=== PATIENT | female | born 1965 | race Caucasian/White ===

== ENCOUNTER 2022-04-21 08:25 | Emergency (ER) | payer BC, SELFPAY ==
[2022-04-21 08:30] VITALS: BP 151/101; PULSE 119; RESP 18; TEMP 36.9; O2SAT 96
--- NOTE | 2022-04-21 08:50 | DI.CT_ITS ---
Exam(s) CT ABDOMEN PELVIS W EXAM: CT ABDOMEN PELVIS W CLINICAL HISTORY: LUQ and flank pain, fever TECHNIQUE: Imaging Protocol: Axial computed tomography images with coronal and sagittal reformatted images were created and reviewed CONTRAST MATERIAL: Intravenous: Omnipaque 350 Contrast volume:100 mL Oral: No COMPARISON: No exams were available for comparison FINDINGS: ABDOMEN: Lung Bases: There is a small hiatal hernia. Liver: There is diffuse decreased attenuation of the liver suggesting fatty infiltration. No suspici ous masses. Portal, Superior Mesenteric, and Splenic Veins: Unremarkable. Gallbladder and Biliary Tract: No radiodense calculus or dilation. Pancreas: Normal density, no abnormal calcifications or inflammatory process. Spleen: Normal. Adrenals: No masses seen. Kidneys: Normal size, contour and axis. There is a nonobstructing 8 mm stone in the midpole of the le ft kidney. There is no hydronephrosis. There is a 4.3 x 4.0 cm simple cyst in the left kidney. No follow-up is recommended. No suspicious renal masses are seen. There is a retroaortic left renal ve in. Abdominal Aorta: Abdominal portion non-dilated. Atherosclerosis is present. Bowel: There is diverticulosis seen in the colon. There is bowel wall thickening and mild pericoloni c inflammatory change seen in the descending colon consistent with acute diverticulitis. No evidence of appendicitis. No evidence of bowel obstruction. Peritoneal Cavity: No ascites, collection or mesenteric inflammatory response. No free air.No absces s. Lymph Nodes: Within normal limits. Bones: Within normal limits for the patient's age. Soft Tissues: There is a fat containing umbilical hernia. PELVIS: Bladder: Symmetric distention, no gross wall thickening. Reproductive Organs: Unremarkable as visualized. Lymph Nodes: Within normal limits. Bones: Within normal limits for the patient's age. IMPRESSION: 1. Findings of acute descending diverticulitis. No abscess or free air. 2. Left nephrolithiasis. No hydronephrosis. 3. Findings were discussed with Tressa Melendez at 10:10 a.m. on 04/21/2022. RADIATION DOSE DELIVERED: 1,440.03mGy.cm Total DLP DATA REPOSITORY: All CT scans at this facility are submitted to the National Radiology Data Registry (NRDR) Dose Index Registry (DIR) with the [employer] (A[employer]). RADIATION OPTIMIZATION: All CT scans at this facility use at least one of these dose optimization te chniques: automated exposure control; mA and/or kV adjustment per patient size (includes targeted exa ms where dose is matched to clinical indication); or iterative reconstruction.
--- NOTE | 2022-04-21 08:54 | ED.GENADUL_ITS ---
Discharge Plan Disposition Patient Disposition: Home Discharge Details Clinical Impression: Diverticulitis Primary Care Provider: Kenyetta Gutierrez ED Provider: Tressa Melendez Home Meds and New Rx's Prescriptions: New metronidazole 500 mg tablet 500 mg PO TID Qty: 30 0RF ciprofloxacin HCl [Cipro] 500 mg tablet 500 mg PO BID Qty: 20 0RF metoclopramide HCl [Reglan] 10 mg tablet 10 mg PO Q6H PRNQty: 10 0RF Continued [id number] serr [Osteo Bi-Flex (5-Loxin)] 1 EACH tablet 1 ea PO DAILY ibuprofen [Advil] 200 MG tablet 600 mg PO PRN PRN Discharge Instructions Additional Instructions: Take antibiotics as prescribed Yogurt daily while on antibiotics Call to schedule an appointment at [facility], if they will still accept you as a patient, you should be reevaluated within the next week Advised to place you on the care management list to establish care if you are no longer a patient Use caution while taking ciprofloxacin, it can sometimes cause joint aches and pains, if it is beginning to do that you should discontinue the medication and be reassessed the same day should you develop fever, chills, worsening pain, please return immediately to the emergency department Referrals: Kenyetta Gutierrez [Primary Care Provider] - Medical Decision Making Patient presents with left upper quadrant abdominal pain, secondary to presenting complaints and tachycardia, CT abdomen and pelvis is ordered to evaluate for further pathology CT abdomen and pelvis shows evidence of diverticulitis per radiology discussion and my review Will place patient on antibiotics, Cipro and Flagyl Will refer back for recheck within the next several days with primary care physician Adamantly declines opiate analgesia, will take ibuprofen and Tylenol Careful return precautions reviewed in detail Diagnostic labs reviewed without significant acute abnormality HPI General Date/Time Provider Initiated Documentation: 04/21/22 08:44 . HPI Narrative: This 56-year-old female presents with left-sided back and upper abdominal pain. She denies any dysuria or frequency. The pains been present for a week and a half. She denies any fever or chills. Related Data Home Medications Medication Instructions Recorded Confirmed ibuprofen 200 mg tablet (Advil) 600 mg PO PRN PRN 08/02/14 04/21/22 glucosamine [id number] 1 ea PO DAILY 12/09/16 04/21/22 zenon 1,500 mg-400 unit-100 mg tablet (Osteo Bi-Flex (5-Loxin)) ciprofloxacin HCl 500 mg tablet 500 mg PO BID #20 tabs 04/21/22 (Cipro) metoclopramide HCl 10 mg tablet 10 mg PO Q6H PRN #10 tabs 04/21/22 (Reglan) metronidazole 500 mg tablet 500 mg PO TID #30 tabs 04/21/22 Previous Rx's Medication Instructions Recorded ciprofloxacin HCl 500 mg tablet 500 mg PO BID #20 tabs 04/21/22 (Cipro) metoclopramide HCl 10 mg tablet 10 mg PO Q6H PRN #10 tabs 04/21/22 (Reglan) metronidazole 500 mg tablet 500 mg PO TID #30 tabs 04/21/22 Allergies Allergy/AdvReac Type Severity Reaction Status Date / Time codeine Allergy Severe Swelling/Ed Unverified 04/21/22 08:33 timoteo General Stated Complaint: Abd Prob ARACELI: 3 PFSH All Active Problems (Updated 04/21/22 @ 10:31 by PAULA Sharma) Diverticulitis (Chronic) Surgical History Diagnostic Laproscopy Dr Garvin Family History Mother Hyperlipidemia Maternal Uncle Diabetes maternal Maternal Aunt Diabetes maternal Social History Smoking/Tobacco Use Status: Never Smoking risk assessment performed?: Yes Alcohol Intake: never Drug use: Never Substance use type: does not use Exam Const General: cooperative, comfortable and no acute distress Orientation: alert and oriented x3 Eyes Sclera: sclerae normal Resp Effort & Inspection: normal respiratory effort Auscultation: clear to auscultation bilaterally Cardio Rate: tachycardic Rhythm: regular rhythm GI Other: Left upper quadrant and flank tenderness Skin General skin exam: no rashes or lesions noted Neuro General: patient alert and patient oriented x3 Extrem General: normal to inspection Course Vital Signs Vital signs: Vital Signs Temperature 36.9 C 04/21/22 08:30 Pulse 119 H 04/21/22 08:30 Respiratory Rate 18 04/21/22 08:30 Blood Pressure 151/101 H 04/21/22 08:30 Pulse Oximetry 96 04/21/22 08:30 Temperature 36.9 C 04/21/22 08:30 Temperature Source Oral 04/21/22 08:30 Pulse 119 H 04/21/22 08:30 Respiratory Rate 18 04/21/22 08:30 Respiratory Effort Normal 04/21/22 08:35 Blood Pressure 151/101 H 04/21/22 08:30 Blood Pressure Position Sitting 04/21/22 08:30 Pulse Oximetry 96 04/21/22 08:30 Oxygen Delivery Method Room Air 04/21/22 08:30 Oxygen Flow Rate 0 04/21/22 08:30 Pain Level 8 04/21/22 08:30
[2022-04-21 09:02] LABS: Abs Immature Grans 0.02 10^3/uL (0.0-0.06); Absolute Basophil Count 0.05 10^3/uL (0.0-0.2); Absolute Eosinophil Count 0.14 10^3/uL (0.0-0.7); Absolute Lymphocyte Count 1.81 10^3/uL (1.2-3.4); Absolute Monocyte Count 0.84 10^3/uL (0.1-0.8); Absolute Neutrophil Count 6.42 10^3/uL (1.2-6.7); Basophils % 0.5; Eosinophils % 1.5; HCT 47.9 % (36.0-46.0); HGB 16.3 g/dL (11.2-15.7); Immature Grans % 0.2; Lymphocytes % 19.5; MCH 30.2 pg (27.0-33.0); MCV 89 fL (80-95); MPV 9.8 fL (8.0-11.0); Monocytes % 9.1; Neutrophils % 69.2; Platelet Count 259 10^3/uL (130-400); RDW 12.9 % (11.7-14.6); RDW-SD 42.3 fL; WBC 9.28 10^3/uL (4.4-10.8)
[2022-04-21] MEDS: ACETAMINOPHEN 1,000 MG/100 ML BTL 400 MG IVPB (09:05)
[2022-04-21] MEDS: Lactated Ringers 1,000 ML 1000 ML IV (09:05)
[2022-04-21 09:15] LABS: ALT 33 U/L (14-59); AST 17 U/L (15-37); Albumin 3.7 g/dL (3.4-5.0); Alkaline Phosphatase 95 U/L (46-116); BUN 12 mg/dL (7-18); Bilirubin, Total 0.6 mg/dL (0.2-1.0); Calcium 9.3 mg/dL (8.5-10.1); Chloride 105 mmol/L (98-107); Estimated GFR 66.95 (mL/min/1.73m2); Glucose 135 mg/dL (74-106); Lipase 26 U/L (16-77); Potassium 4.2 mmol/L (3.5-5.1); Sodium 140 mmol/L (136-145)
[2022-04-21] MEDS: Normal Saline Flush 10 ML SYR IVP (09:30)
[2022-04-21] MEDS: Omnipaque 350 MG/ML 100 ML BTL IJ (09:30)
[2022-04-21] MEDS: Normal Saline - Diluent 50 ML VIAL IJ (09:32)
[2022-04-21 10:14] LABS: Bilirubin Negative (Negative); Blood Trace-intact (Negative); Clarity Clear (Clear); Glucose Negative (Negative); Ketones Negative (Negative); Leukocyte Esterase Negative (Negative); Nitrite Negative (Negative); Urobilinogen 0.2 mg/dL (Up to 0.2); pH 6.5 (5-8)
[2022-04-21 10:18] VITALS: BP 146/85; PULSE 97
--- NOTE | 2022-04-21 10:19 | NUR.NOTE ---
Nursing Note: Referral given to Care Management needs PCP to establish care; acute diverticulitis/ by next week. Kenyetta Gutierrez is listed in the chart, but pt has never been seen in that office.
[2022-04-21 10:28] LABS: Bacteria Few HPF (Negative); C & S Indicated? No; Casts Negative LPF (Negative); Crystals Negative HPF (Negative); Epithelial Cells Few HPF (Negative); Mucus Negative (Negative); Other Cells Negative (Negative); WBC 0-2 HPF (0-5)
[2022-04-21 10:43] VITALS: BP 145/96; PULSE 98; RESP 16; O2SAT 93
== END 2022-04-21 10:52 | disposition home or self-care (01) ==
PROVIDERS: Emergency Provider Physician Assistant; PCP Nurse Practitioner Family
DX: K57.92 Diverticulitis of intestine, part unspecified, without perforation or abscess without bleeding (principal)
CPT/HCPCS: 36415; 80053; 81025; 83690; 96361; 96365; 99284; 74177; 81003; 81015; 85025; J0131; J3490

== ENCOUNTER 2022-05-11 17:35 | Outpatient (REF) | payer BC, SELFPAY ==
[2022-05-11 20:08] LABS: Calculated LDL 186 mg/dL (<100); Cholesterol 287 mg/dL (<200); HDL Cholesterol 50 mg/dL (40-60); Triglyceride 258 mg/dL (<150)
== END 2022-05-11 17:36 | disposition home or self-care (01) ==
LOC: NCHCN 17:35
PROVIDERS: PCP Nurse Practitioner Family; Visit Provider Nurse Practitioner Family
DX: I10 Essential (primary) hypertension (principal); Z13.220 Encounter for screening for lipoid disorders
CPT/HCPCS: 80061

== ENCOUNTER → 2022-11-23 00:49 | Outpatient (CLI) | payer BC, SELFPAY ==
--- NOTE | 2022-11-23 08:15 | DI.MAMMO_ITS ---
Exam(s) MAMMO SCREENING EXAM: MAMMO SCREENING CLINICAL HISTORY: SCREENING FOR BREAST CANCER Z12.39 TECHNIQUE: Mammograms were interpreted according to the usual protocol including computer analysis w [employer] CAD system, tomosynthesis and C-view imaging. COMPARISON: None. Baseline examination. FINDINGS: The breasts are composed of mainly fatty density , Breast Density category A. No suspicious masses or suspicious microcalcifications are seen. No skin thickening or abnormal axillary lymph nodes are seen. IMPRESSION: BI-RADS Category 1, Negative mammogram Yearly screening mammography is recommended. Breast Density - Category A, fatty density. A negative radiographic report should not delay biopsy if a dominant or clinically suspicious mass is present. Up to ten percent of cancers are not identified on mammography. A negative report may reinforce clinical impression. Adenosis and dense breasts may obscure an underlying neoplasm. False positive reports average 6 to 10%. Patient will receive a letter notifying them of these results.
== END ==
PROVIDERS: PCP Nurse Practitioner Family; Visit Provider Nurse Practitioner Family
DX: Z12.31 Encounter for screening mammogram for malignant neoplasm of breast (principal)
CPT/HCPCS: 77063; 77067

== ENCOUNTER 2023-09-02 22:18 | Outpatient (REF) | payer BC, SELFPAY ==
[2023-09-02 18:26] LABS: Abs Immature Grans 0.02 10^3/uL (0.0-0.06); Absolute Basophil Count 0.08 10^3/uL (0.0-0.2); Absolute Eosinophil Count 0.14 10^3/uL (0.0-0.7); Absolute Lymphocyte Count 2.09 10^3/uL (1.2-3.4); Absolute Monocyte Count 0.75 10^3/uL (0.1-0.8); Absolute Neutrophil Count 3.39 10^3/uL (1.2-6.7); Basophils % 1.2 %; Eosinophils % 2.2 %; HCT 46.6 % (36.0-46.0); HGB 15.9 g/dL (11.2-15.7); Immature Grans % 0.3 %; Lymphocytes % 32.3 %; MCH 30.8 pg (27.0-33.0); MCHC 34.1 % (32.0-36.0); MCV 90 fL (80-95); MPV 9.9 fL (8.0-11.0); Monocytes % 11.6 %; Neutrophils % 52.4 %; Platelet Count 270 10^3/uL (130-400); RBC 5.17 10^6/uL (3.93-5.22); RDW 12.9 % (11.7-14.6); RDW-SD 42.2 fL; WBC 6.47 10^3/uL (4.4-10.8)
[2023-09-02 18:58] LABS: Anion Gap 9.9 mmol/L (3-11); BUN 12 mg/dL (7-18); CO2 28.1 mmol/L (21.0-32.0); CREATININE 0.9 mg/dL (0.55-1.02); Calcium 9.5 mg/dL (8.5-10.1); Calculated LDL 181 mg/dL (<100); Chloride 103 mmol/L (98-107); Cholesterol 273 mg/dL (<200); Ferritin 81 ng/mL (8-252); Glucose 109 mg/dL (74-106); HDL Cholesterol 46 mg/dL (40-60); Potassium 4.5 mmol/L (3.5-5.1); Sodium 141 mmol/L (136-145); Triglyceride 233 mg/dL (<150)
== END 2023-09-02 22:19 | disposition home or self-care (01) ==
LOC: NCHCN 22:18
PROVIDERS: Visit Provider Nurse Practitioner Family
DX: R12 Heartburn (principal); E78.5 Hyperlipidemia, unspecified; R71.8 Other abnormality of red blood cells
CPT/HCPCS: 80048; 80061; 82728; 85025

== ENCOUNTER 2023-12-21 11:11 | Outpatient (REF) | payer BC, SELFPAY ==
--- NOTE | 2023-12-21 09:50 | PAPFT_PTH ---
PATIENT: Constance Oliva LOC: [facility]#:[id number] AGE/SX: 58/F ROOM: RE12/21/[address]: Jody Hayes : 1965 BED: DIS: 12/21/2023 SPEC #: [id number] RECD: 12/21/23 17:52 STATUS: WILLIE REQ #: [id number] DONAVAN: 12/21/23 09:[address]: Jody Hayes DEPT: [facility] Cytology RECD BY: Tressa Pompa ENTERED: 12/21/23 17:52 SP TYPE: PAPFT OTHR DR: Unknown,Unknown Tissues: 1 - CX/ENDOCX FOR PAP SMEARS Procedures: PAP THIN PREP/UVM Screening HPV DNA PROBE Comments: [id number] (HPV 16 & 18/45)
== END 2023-12-21 11:12 | disposition home or self-care (01) ==
LOC: NCHCN 11:11
PROVIDERS: Visit Provider Nurse Practitioner Family
DX: Z11.51 Encounter for screening for human papillomavirus (HPV) (principal); Z01.419 Encounter for gynecological examination (general) (routine) without abnormal findings
CPT/HCPCS: 88142; 87624

== ENCOUNTER 2024-02-03 00:40 | Outpatient (CLI) | payer BC, SELFPAY ==
--- NOTE | 2024-02-03 10:45 | DI.MAMMO_ITS ---
Exam(s) MAMMO SCREENING EXAM: MAMMO SCREENING CLINICAL HISTORY: Screening, Z12.31. TECHNIQUE: Bilateral full field digital CC and MLO mammographic images were obtained with 3D tomosyn thesis and utilizing computer aided detection (CAD). COMPARISON: Prior baseline mammogram November 2022 was reviewed. FINDINGS: Benign-appearing small noncalcified and partially calcified nodules in both breasts are again noted. There are no new spiculated masses nor new malignant appearing microcalcification groups. There is no significant architectural distortion nor skin thickening-retraction. IMPRESSION: Stable benign-appearing findings. No radiographic evidence of malignancy. BI-RADS Category 2 - Benign Findings Breast Density - Category B - Scattered areas of fibroglandular density Breast density Category C or D implies that the patient has dense breast tissue. Dense breast tissue can make it harder to find cancer on a mammogram. Dense breast tissue is also associated with an incr eased risk of breast cancer. This information about the result of the mammogram report was provided to the patient to raise their awareness. Use this report when you speak with the patient about their risks for breast cancer, which includes their family history. At that time, you may recommend additional screening tests (Ultrasoun d or MRI) as these tests may add significant information. A negative radiographic report should not delay biopsy if a dominant or clinically suspicious mass is present. Up to ten percent of cancers are not identified on mammography. A negative report may reinforce clinical impression. Adenosis and dense breasts may obscure an underlying neoplasm. False positive reports average 6 to 10%. Patient will receive a letter notifying them of these results.
== END 2024-02-03 01:00 ==
PROVIDERS: PCP Nurse Practitioner Family; Visit Provider Nurse Practitioner Family
DX: Z12.31 Encounter for screening mammogram for malignant neoplasm of breast (principal); R92.323 Mammographic fibroglandular density, bilateral breasts; D24.1 Benign neoplasm of right breast; D24.2 Benign neoplasm of left breast
CPT/HCPCS: 77063; 77067

== ENCOUNTER 2024-05-29 16:45 | Outpatient (REF) | payer BC, SELFPAY | END 2024-05-29 16:46 | disposition home or self-care (01) | LOC: NCHCN 16:45 | PROVIDERS: PCP Nurse Practitioner Family; Visit Provider Physician Assistant | DX: R30.0 Dysuria (principal); R82.89 Other abnormal findings on cytological and histological examination of urine | CPT/HCPCS: 87086 ==

== ENCOUNTER 2024-11-23 15:30 | Outpatient (REF) | payer BC, SELFPAY ==
[2024-11-23 16:55] LABS: Abs Immature Grans 0.01 10^3/uL (0.0-0.06); HCT 42.9 % (36.0-46.0); HGB 14.7 g/dL (11.2-15.7); Immature Grans % 0.2 %; MCH 30.4 pg (27.0-33.0); MCHC 34.3 % (32.0-36.0); MCV 89 fL (80-95); MPV 9.6 fL (8.0-11.0); Platelet Count 277 10^3/uL (130-400); RBC 4.83 10^6/uL (3.93-5.22); RDW 12.5 % (11.7-14.6); RDW-SD 40.8 fL; WBC 5.24 10^3/uL (4.4-10.8)
[2024-11-23 17:24] LABS: ALT 32 U/L (14-59); AST 18 U/L (15-37); Albumin 3.8 g/dL (3.4-5.0); Alkaline Phosphatase 81 U/L (46-116); Anion Gap 8.9 mmol/L (3-11); BUN 15 mg/dL (7-18); Bilirubin, Total 0.4 mg/dL (0.2-1.0); CO2 28.1 mmol/L (21.0-32.0); Calcium 9.6 mg/dL (8.5-10.1); Calculated LDL 186 mg/dL (<100); Chloride 103 mmol/L (98-107); Cholesterol 260 mg/dL (<200); Estimated GFR 74.57 (mL/min/1.73m2); Glucose 104 mg/dL (74-106); HDL Cholesterol 39 mg/dL (>or=50); Potassium 4.1 mmol/L (3.5-5.1); Sodium 140 mmol/L (136-145); TSH (W/Ref FT4) 0.79 uIU/mL (0.36-3.74); Total Protein 7.3 g/dL (6.4-8.2); Triglyceride 177 mg/dL (<150)
[2024-11-23 17:53] LABS: Hemoglobin A1C 6.1 % (<5.7)
== END 2024-11-23 15:31 | disposition home or self-care (01) ==
LOC: NCHCN 15:30
PROVIDERS: PCP Nurse Practitioner Family
DX: E66.01 Morbid (severe) obesity due to excess calories (principal)
CPT/HCPCS: 80053; 80061; 83036; 84443; 85025

== ENCOUNTER → 2025-02-04 00:10 | Outpatient (CLI) | payer BC, SELFPAY ==
--- NOTE | 2025-02-04 09:21 | DI.MAMMO_ITS ---
Exam(s) MAMMO SCREENING EXAM: MAMMO SCREENING CLINICAL HISTORY: SCREENING,Z12.31 TECHNIQUE: Bilateral full field digital CC and MLO mammographic images were obtained with 3D tomosynthesis and utilizing computer aided detection (CAD). COMPARISON: Comparison is made with prior examinations. FINDINGS: Masses/Architectural Distortion: No suspicious masses or areas of architectural distortion are present. There are stable bilateral breast nodules. Microcalcifications: No suspicious pleomorphic-type are seen. Skin Thickening/Nipple Retraction: None. IMPRESSION: 1. No significant interval change with no specific features of malignancy noted. 2. Unless there is more urgent need, screening mammography is recommended, as per [employer] guidelines. BI-RADS Category 2 - Benign Findings Breast Density - Category B - There are scattered areas of fibroglandular density. Breast density Category C or D implies that the patient has dense breast tissue. Dense breast tissue can make it harder to find cancer on a mammogram. Dense breast tissue is also associated with an increased risk of breast cancer. This information about the result of the mammogram report was provided to the patient to raise their awareness. Use this report when you speak with the patient about their risks for breast cancer, which includes their family history. At that time, you may recommend additional screening tests (Ultrasound or MRI) as these tests may add significant information. A negative radiographic report should not delay biopsy if a dominant or clinically suspicious mass is present. Up to ten percent of cancers are not identified on mammography. A negative report may reinforce clinical impression. Adenosis and dense breasts may obscure an underlying neoplasm. False positive reports average 6 to 10%. Patient will receive a letter notifying them of these results.
== END ==
LOC: DI 00:10
PROVIDERS: PCP Nurse Practitioner Family
DX: Z12.31 Encounter for screening mammogram for malignant neoplasm of breast (principal)
CPT/HCPCS: 77063; 77067